=== PATIENT | male | born 1945 | race Caucasian/White ===

== ENCOUNTER 2016-06-05 17:41 | Emergency (ER) | payer MEDICARE ==
[2016-06-05] MEDS ORDERED: NS 0.9% 1000 ML* 1,000 ML IV SCH (18:00)
--- NOTE | 2016-06-05 18:25 | RAD ---
INDICATION: Palpitations. COMPARISON: There are no prior studies available for comparison. TECHNIQUE: 2 portable films of the chest were obtained. FINDINGS: Cardiac and mediastinal contours appear to be within normal limits. The lungs are underinflated and clear. No pleural effusion is seen. IMPRESSION: NO EVIDENCE FOR ACUTE DISEASE.
[2016-06-05] MEDS ORDERED: NS 0.9% 1000 ML* 1,000 ML IV ONE (18:36)
[2016-06-05 18:38] LABS: Hematocrit 44 % (42-52); Hemoglobin 14.6 g/dl (14.0-18.0); Mean Corpuscular HGB Conc 34 g/dl (31-36); Mean Corpuscular Hemoglobin 29 pg (27-31); Mean Corpuscular Volume 88 fL (80-94); Mean Platelet Volume 9 um3 (7.4-10.4); Red Blood Count 4.97 10^6/ul (4.0-5.4); Red Cell Distribution Width 14 % (10.5-15); White Blood Count 7.7 10^3/ul (3.5-10.8)
[2016-06-05 18:57] LABS: ALT 17 U/L (7-52); AST 15 U/L (13-39); Albumin 3.9 g/dL (3.2-5.2); Alkaline Phosphatase 70 U/L (34-104); Anion Gap 7 mmol/L (2-11); BUN/Creatinine Ratio 23.8 (8-20); Blood Urea Nitrogen 20 mg/dL (6-24); C Reactive Protein < 1.00 mg/L (< 5.00); CO2 Carbon Dioxide 26 mmol/L (22-32); Calcium 9.1 mg/dL (8.6-10.3); Chloride 102 mmol/L (101-111); Creatine Kinase 60 U/L (10-223); EGFR African American 116.5 (>60); EGFR Non-African American 90.6 (>60); Globulin 2.7 g/dL (2-4); Glucose 153 mg/dL (70-100); Lipase 22 U/L (11.0-82.0); Magnesium 2.2 mg/dL (1.9-2.7); Potassium 3.9 mmol/L (3.5-5.0); Sodium 135 mmol/L (133-145); Total Protein 6.6 g/dL (6.4-8.9); Troponin I 0.01 ng/mL (<0.04)
[2016-06-05 19:22] LABS: TSH (Thyroid Stimulating Horm) 0.95 mcIU/mL (0.34-5.60)
[2016-06-05] MEDS ORDERED: Iohexol 350* (CONTRAST) 500 ML MDV IV ONE (19:25)
--- NOTE | 2016-06-05 20:33 | RAD ---
INDICATION: Calf pain and positive d-dimer. COMPARISON: There are no prior studies available for comparison. TECHNIQUE: Multiple real-time, color flow and Doppler tracings of both lower extremities were obtained. FINDINGS: The common femoral, femoral, profunda femoral and popliteal veins all demonstrate normal compressibility, augmentation with compression and phasic response with respiration. The posterior tibial and peroneal veins demonstrate normal compressibility and augmentation with compression. IMPRESSION: NO EVIDENCE FOR DEEP VENOUS THROMBOSIS.
--- NOTE | 2016-06-05 20:43 | RAD ---
INDICATION: Shortness of breath, positive d-dimer. COMPARISON: Comparison is made with a prior chest x-ray study of the same date. TECHNIQUE: A CT angiogram of the chest was performed with intravenous following intravenous injection of 64 ml of Omnipaque 350 nonionic contrast. Contiguous axial sections were obtained from the lung apices through the lung bases. Images were reconstructed in the coronal and sagittal planes. FINDINGS: There is relatively homogeneous opacification of the pulmonary arteries. No intraluminal filling defect or pulmonary embolism is seen. The heart is within normal limits in size. No pericardial effusion is present. There is mild ectasia of the ascending thoracic aorta. There is moderate calcific plaque present. No significant enlarged mediastinal or hilar lymph nodes are seen. There is a moderate size hiatal hernia present. There is a 5 mm pulmonary nodule present in the right lower lobe adjacent to the major fissure best seen on image #[id number] of [id number]. There is mild dependent bilateral lower lobe subsegmental atelectasis. The lungs are otherwise clear. No pleural effusion is present. No significant focal osseous abnormality is seen. IMPRESSION: 1. NO EVIDENCE FOR PULMONARY EMBOLISM. 2. 5 MM LEFT LOWER LOBE PULMONARY NODULE. RECOMMEND A FOLLOW-UP NONCONTRAST CT OF THE CHEST IN 6 MONTHS TIME TO DEMONSTRATE STABILITY.
--- NOTE | 2016-06-05 21:26 | ED ---
Miky Hutton Alok, scribed for Timothy Yeboah MD on 06/05/16 at 1842 . Palpitations / Dysrhythmia - HPI Summary HPI Summary: 70 y/o male presents to the ED with arrhythmia for the past couple of days. The patient states that he has had this arrhythmia in the past intermittently but that for the past couple days he has experienced consistent arrhythmia in the form of palpitations when ambulating as well as SOB, weakness and short bouts of lightheadedness lasting seconds at a time. While at rest the pt states he does not feel these symptoms and denies CP, LE edema, or abd pain. Pt denies h/ o CAD or A fib and takes Atenolol, Lisinopril, Hydrochlorothiazide, and aspirin , as well as medication for HLD. PCP Dr. Love. - History of Current Complaint Chief Complaint: EDShortnessOfBreath Time Seen by Provider: 06/05/16 17:55 Hx Obtained From: Patient Onset/Duration: Gradual Onset, Lasting Days, Still Present Severity Initially: Moderate Severity Currently: Moderate Character: Irregular Aggravating: Exertion Alleviating: Rest Associated Signs & Symptoms: Lightheadedness, Shortness of Breath - Allergy/Home Medications Allergies/Adverse Reactions: Allergies Allergy/AdvReac Type Severity Reaction Status Date / Time No Known Allergies Allergy Verified 05/08/15 11:21 PMH/Surg Hx/FS Hx/Imm Hx Cardiovascular History: Reports: Hx Hypercholesterolemia, Hx Hypertension Denies: Hx Angina, Hx Pacemaker/ICD Respiratory History: Denies: Hx Asthma, Hx Chronic Obstructive Pulmonary Disease (COPD) Sensory History: Denies: Hx Hearing Aid Psychiatric History: Denies: Hx Panic Disorder - Surgical History Surgery Procedure, Year, and Place: APPENDIX; SEPTOPLASTY Infectious Disease History: Denies: History Other Infectious Disease, Traveled Outside the [place] in Last 30 Days - Family History Known Family History: Positive: Hypertension - Social History Alcohol Use: None Substance Use Type: Reports: None Smoking Status (MU): Never Smoked Tobacco Review of Systems Negative: Fever Positive: Palpitations. Negative: Chest Pain Positive: Shortness Of Breath Negative: Abdominal Pain Negative: Edema Neurological: Other - Lightheadedness All Other Systems Reviewed And Are Negative: Yes Physical Exam Triage Information Reviewed: Yes Vital Signs On Initial Exam: Initial Vitals Temp Pulse Resp BP Pulse Ox 98.7 F 75 20 153/82 98 06/05/16 17:44 06/05/16 17:44 06/05/16 17:44 06/05/16 17:44 06/05/16 17:44 Vital Signs Reviewed: Yes Appearance: Positive: Well-Appearing, No Pain Distress Skin: Positive: Warm, Skin Color Reflects Adequate Perfusion, Dry Head/Face: Positive: Normal Head/Face Inspection Eyes: Positive: EOMI, ALTON ENT: Positive: Normal ENT inspection Neck: Positive: Supple, Nontender Respiratory/Lung Sounds: Positive: Clear to Auscultation, Breath Sounds Present Cardiovascular: Positive: RRR Abdomen Description: Positive: Nontender, Soft Bowel Sounds: Positive: Present Musculoskeletal: Positive: Normal, Strength/ROM Intact Neurological: Positive: Normal, Sensory/Motor Intact, Alert, Oriented to Person Place, Time Psychiatric: Positive: Affect/Mood Appropriate - Zane Coma Scale Coma Scale Total: 15 Diagnostics - Vital Signs Vital Signs Temp Pulse Resp BP Pulse Ox 06/05/16 18:18 72 17 94 06/05/16 18:14 149/66 06/05/16 17:56 98.5 F 73 20 149/66 95 06/05/16 17:44 98.7 F 75 20 153/82 98 - Laboratory Lab Results: Lab Results 06/05/16 06/05/16 06/05/16 Range/Units 18:25 18:25 18:25 WBC 7.7 (3.5-10.8) 10^3/ul RBC 4.97 (4.0-5.4) 10^6/ul Hgb 14.6 (14.0-18.0) g/dl Hct 44 (42-52) % MCV 88 (80-94) fL MCH 29 (27-31) pg MCHC 34 (31-36) g/dl RDW 14 (10.5-15) % Plt Count 160 (150-450) 10^3/ul MPV 9 (7.4-10.4) um3 Neut % (Auto) 55.5 (38-83) % Lymph % (Auto) 34.2 (25-47) % [place] % (Auto) 8.1 (1-9) % Eos % (Auto) 1.6 (0-6) % Baso % (Auto) 0.6 (0-2) % Absolute Neuts (auto) 4.3 (1.5-7.7) 10^3/ul Absolute Lymphs (auto) 2.6 (1.0-4.8) 10^3/ul Absolute Monos (auto) 0.6 (0-0.8) 10^3/ul Absolute Eos (auto) 0.1 (0-0.6) 10^3/ul Absolute Basos (auto) 0 (0-0.2) 10^3/ul Absolute Nucleated RBC 0.01 10^3/ul Nucleated RBC % 0.1 INR (Anticoag Therapy) 0.98 (0.89-1.11) APTT 27.3 (26.0-36.3) seconds D-Dimer, Quantitative 267 H (Less Than 230) ng/mL Sodium 135 (133-145) mmol/L Potassium 3.9 (3.5-5.0) mmol/L Chloride 102 (101-111) mmol/L Carbon Dioxide 26 (22-32) mmol/L Anion Gap 7 (2-11) mmol/L BUN 20 (6-24) mg/dL Creatinine 0.84 (0.67-1.17) mg/dL Est GFR ( Amer) 116.5 (>60) Est GFR (Non-Af Amer) 90.6 (>60) BUN/Creatinine Ratio 23.8 H (8-20) Glucose 153 H (70-100) mg/dL Lactic Acid (0.5-2.0) mmol/L Calcium 9.1 (8.6-10.3) mg/dL Magnesium 2.2 (1.9-2.7) mg/dL Total Bilirubin 0.40 (0.2-1.0) mg/dL AST 15 (13-39) U/L ALT 17 (7-52) U/L Alkaline Phosphatase 70 (34-104) U/L Total Creatine Kinase 60 (10-223) U/L CK-MB (CK-2) 0.9 (0.6-6.3) ng/mL Troponin I 0.01 (<0.04) ng/mL C-Reactive Protein < 1.00 (< 5.00) mg/L B-Natriuretic Peptide ( - 100) pg/mL Total Protein 6.6 (6.4-8.9) g/dL Albumin 3.9 (3.2-5.2) g/dL Globulin 2.7 (2-4) g/dL Albumin/Globulin Ratio 1.4 (1-3) Lipase 22 (11.0-82.0) U/L TSH 0.95 (0.34-5.60) mcIU/mL 06/05/16 06/05/16 Range/Units 18:25 18:25 WBC (3.5-10.8) 10^3/ul RBC (4.0-5.4) 10^6/ul Hgb (14.0-18.0) g/dl Hct (42-52) % MCV (80-94) fL MCH (27-31) pg MCHC (31-36) g/dl RDW (10.5-15) % Plt Count (150-450) 10^3/ul MPV (7.4-10.4) um3 Neut % (Auto) (38-83) % Lymph % (Auto) (25-47) % [place] % (Auto) (1-9) % Eos % (Auto) (0-6) % Baso % (Auto) (0-2) % Absolute Neuts (auto) (1.5-7.7) 10^3/ul Absolute Lymphs (auto) (1.0-4.8) 10^3/ul Absolute Monos (auto) (0-0.8) 10^3/ul Absolute Eos (auto) (0-0.6) 10^3/ul Absolute Basos (auto) (0-0.2) 10^3/ul Absolute Nucleated RBC 10^3/ul Nucleated RBC % INR (Anticoag Therapy) (0.89-1.11) APTT (26.0-36.3) seconds D-Dimer, Quantitative (Less Than 230) ng/mL Sodium (133-145) mmol/L Potassium (3.5-5.0) mmol/L Chloride (101-111) mmol/L Carbon Dioxide (22-32) mmol/L Anion Gap (2-11) mmol/L BUN (6-24) mg/dL Creatinine (0.67-1.17) mg/dL Est GFR ( Amer) (>60) Est GFR (Non-Af Amer) (>60) BUN/Creatinine Ratio (8-20) Glucose (70-100) mg/dL Lactic Acid 1.4 (0.5-2.0) mmol/L Calcium (8.6-10.3) mg/dL Magnesium (1.9-2.7) mg/dL Total Bilirubin (0.2-1.0) mg/dL AST (13-39) U/L ALT (7-52) U/L Alkaline Phosphatase (34-104) U/L Total Creatine Kinase (10-223) U/L CK-MB (CK-2) (0.6-6.3) ng/mL Troponin I (<0.04) ng/mL C-Reactive Protein (< 5.00) mg/L B-Natriuretic Peptide 162 H ( - 100) pg/mL Total Protein (6.4-8.9) g/dL Albumin (3.2-5.2) g/dL Globulin (2-4) g/dL Albumin/Globulin Ratio (1-3) Lipase (11.0-82.0) U/L TSH (0.34-5.60) mcIU/mL Result Diagrams: 06/05/16 18:25 06/05/16 18:25 Lab Statement: Any lab studies that have been ordered have been reviewed, and results considered in the medical decision making process. - Radiology CXR Xray Interpretation: Positive (See Comments) - IMPRESSION: NO EVIDENCE FOR ACUTE DISEASE. Radiology Interpretation Completed By: Radiologist - CT Chest Thorax CTA CT Interpretation: Positive (See Comments) - IMPRESSION: 1. NO EVIDENCE FOR PULMONARY EMBOLISM. 2. 5 MM LEFT LOWER LOBE PULMONARY NODULE. RECOMMEND A FOLLOW -UP NONCONTRAST CT OF THE CHEST IN 6 MONTHS TIME TO DEMONSTRATE STABILITY. CT Interpretation Completed By: Radiologist - EKG 6502 Cardiac Rate: NL - 74 bpm EKG Rhythm: Sinus Rhythm Ectopy: PACs - Multiple EKG Interpretation: Flip T-wave in III - Additional Comments Diagnostic Additional Comments: Lower Extremity Bilateral Vein US - IMPRESSION: NO EVIDENCE FOR DEEP VENOUS THROMBOSIS. Re-Evaluation - Re-Evaluation First Eval Re-Evaluation Time: 21:12 Comment: Discussed test results and trade-offs between admittance vs being treated as an outpatient. Patient will go home with holter monitor and fu with PCP Course/Dx - Course Course Of Treatment: NO CRITICAL CARE TIME Assessment/Plan: PATIENT HAD A BRIEF EPISODE OF AN ATRIAL TACHYCARDIA, RATE 140BPM, IN THE ED. ON THE MONITOR IT DID NOT APPEAR TO BE ATRIAL FIBRILLATION. DISCUSSED RESULTS WITH PATIENT/DAUGHTER. DISCUSSED WITH DR NEWSOME. OFFERED ADMISSION VERSES OUT PATIENT F/U TO PATIENT/DAUGHTER, HE PREFERS OUT PATIENT F/ U. DISCHARGE HOME STABLE. - Diagnoses Provider Diagnoses: Palpitations - Physician Notifications Discussed Care Of Patient With: Dr. Stovall (Hospitalist) @ 2103 Discharge - Discharge Plan Condition: Stable Disposition: HOME Patient Education Materials: Palpitations (ED) Referrals: Abdoul Love MD [Primary Care Provider] - Additional Instructions: FOLLOW UP WITH YOUR DOCTOR. CALL HIM TOMORROW, 06/06/16, TO ARRANGE A CARDIAC EVENT MONITOR. RETURN TO THE EMERGENCY DEPARTMENT FOR ANY WORSENING OF YOUR CONDITION; CHEST PAIN, SHORTNESS OF BREATH, YOU FEEL LIKE PASSING OUT OR QUESTIONS OR CONCERNS. The documentation as recorded by the Miky soria Alok accurately reflects the service I personally performed and the decisions made by me, Timothy Yeboah MD.
[2016-06-05 21:40] VITALS: BP 164/75
== END 2016-06-05 21:39 | disposition home or self-care (01) ==
LOC: ED 17:41
DX: R00.2 Palpitations (principal); R91.1 Solitary pulmonary nodule; R06.02 Shortness of breath
CPT/HCPCS: 36415; 71010; 71275; 80053; 82550; 82553; 83605; 83690; 83735; 83880; 84443; 84484; 85025; 85379; 85610; 85730; 86140; 93005; 93970; 99282; Q9967

== ENCOUNTER 2016-10-27 10:39 | Emergency (ER) | payer MEDICARE ==
[2016-10-27 12:08] LABS: Hematocrit 44 % (42-52); Mean Corpuscular HGB Conc 34 g/dl (31-36); Mean Corpuscular Hemoglobin 30 pg (27-31); Mean Corpuscular Volume 87 fL (80-94); Mean Platelet Volume 9 um3 (7.4-10.4); Red Blood Count 5.04 10^6/ul (4.0-5.4); Red Cell Distribution Width 14 % (10.5-15); White Blood Count 7.7 10^3/ul (3.5-10.8)
[2016-10-27 12:21] LABS: Albumin 3.9 g/dL (3.2-5.2); BUN/Creatinine Ratio 20.5 (8-20); Calcium 9.2 mg/dL (8.6-10.3); EGFR African American 110.1 (>60); EGFR Non-African American 85.6 (>60); Globulin 2.6 g/dL (2-4); Total Bilirubin 0.7 mg/dL (0.2-1.0); Total Protein 6.5 g/dL (6.4-8.9); Troponin I 0.01 ng/mL (<0.04)
--- NOTE | 2016-10-27 12:27 | RAD ---
Indication: Memory lapses. CT of the brain was performed without IV contrast. Intratesticular structures are midline. No midline shift is noted. There is no evidence of cranial mass or hemorrhage. No other high or low density lesions are identified. Mucous retention cyst is noted in the left maxillary sinus. Ethmoid air cells and mastoid sinuses and frontal sinuses are unremarkable. IMPRESSION: No intracranial mass or hemorrhage is noted. Mucous retention cyst in the left maxillary sinus.
[2016-10-27 12:38] LABS: TSH (Thyroid Stimulating Horm) 0.75 mcIU/mL (0.34-5.60)
[2016-10-27 14:20] VITALS: BP 154/72
--- NOTE | 2016-10-27 16:57 | ED ---
Zoie Hutton Edward, scribed for Mikel Francis MD on 10/27/16 at 1108 . Hypertension - HPI Summary HPI Summary: 71 y/o male presents to the ED c/o sudden onset HTN (150/80) starting when the pt woke up in the morning 4 days ago. The symptoms are not aggravated or alleviated by anything. Associated sx: fatigue, gradual onset memory loss for the past couple of days, mild blurred vision. Denies HURLEY. Past medications reviewed on visit. - History of Current Complaint Chief Complaint: EDHypertension Stated Complaint: HIGH BLOOD PRESSURE Time Seen by Provider: 10/27/16 11:05 Hx Obtained From: Patient Onset/Duration: Started Days Ago Associated Signs & Symptoms: Other: - Memory loss, blurred vision, fatigue. Denies HURLEY - Allergies/Home Medications Allergies/Adverse Reactions: Allergies Allergy/AdvReac Type Severity Reaction Status Date / Time No Known Allergies Allergy Verified 07/18/16 15:11 PMH/Surg Hx/FS Hx/Imm Hx Previously Healthy: No Endocrine/Hematology History: Denies: Hx Diabetes Cardiovascular History: Reports: Hx Hypercholesterolemia, Hx Hypertension Denies: Hx Angina, Hx Pacemaker/ICD Respiratory History: Denies: Hx Asthma, Hx Chronic Obstructive Pulmonary Disease (COPD) History: Denies: Hx Renal Disease Sensory History: Denies: Hx Hearing Aid Psychiatric History: Denies: Hx Panic Disorder - Surgical History Surgery Procedure, Year, and Place: APPENDIX; SEPTOPLASTY Infectious Disease History: No Infectious Disease History: Denies: History Other Infectious Disease, Traveled Outside the [place] in Last 30 Days - Family History Known Family History: Positive: Hypertension - Social History Alcohol Use: None Hx Substance Use: No Substance Use Type: Reports: None Hx Tobacco Use: No Smoking Status (MU): Never Smoked Tobacco Review of Systems Positive: Fatigue Positive: Blurred Vision ENT: Negative Cardiovascular: Other - HTN Respiratory: Negative Gastrointestinal: Negative Genitourinary: Negative Musculoskeletal: Negative Skin: Negative Neurological: Other - Memory loss Psychological: Normal All Other Systems Reviewed And Are Negative: Yes Physical Exam Triage Information Reviewed: Yes Vital Signs On Initial Exam: Initial Vitals Temp Pulse Resp BP Pulse Ox 97.7 F 72 16 142/66 96 10/27/16 10:41 10/27/16 10:41 10/27/16 10:41 10/27/16 10:41 10/27/16 10:41 Vital Signs Reviewed: Yes Appearance: Positive: Well-Appearing, No Pain Distress Skin: Positive: Warm, Skin Color Reflects Adequate Perfusion, Dry Head/Face: Positive: Normal Head/Face Inspection Eyes: Positive: Normal ENT: Positive: Normal ENT inspection Neck: Positive: Supple, Nontender Respiratory/Lung Sounds: Positive: Clear to Auscultation, Breath Sounds Present Cardiovascular: Positive: RRR Abdomen Description: Positive: Nontender, Soft Bowel Sounds: Positive: Present Musculoskeletal: Positive: Normal Neurological: Positive: Sensory/Motor Intact, Alert, Oriented to Person Place, Time, CN Intact II-III, Reflexes Intact Psychiatric: Positive: Normal, Affect/Mood Appropriate Diagnostics - Vital Signs Vital Signs Temp Pulse Resp BP Pulse Ox 10/27/16 10:41 97.7 F 72 16 142/66 96 - Laboratory Lab Results: Lab Results 10/27/16 10/27/16 10/27/16 Range/Units 11:40 11:40 11:40 WBC 7.7 (3.5-10.8) 10^3/ul RBC 5.04 (4.0-5.4) 10^6/ul Hgb 15.0 (14.0-18.0) g/dl Hct 44 (42-52) % MCV 87 (80-94) fL MCH 30 (27-31) pg MCHC 34 (31-36) g/dl RDW 14 (10.5-15) % Plt Count 175 (150-450) 10^3/ul MPV 9 (7.4-10.4) um3 Neut % (Auto) 68.0 (38-83) % Lymph % (Auto) 24.4 L (25-47) % [place] % (Auto) 7.1 (1-9) % Eos % (Auto) 0.1 (0-6) % Baso % (Auto) 0.4 (0-2) % Absolute Neuts (auto) 5.3 (1.5-7.7) 10^3/ul Absolute Lymphs (auto) 1.9 (1.0-4.8) 10^3/ul Absolute Monos (auto) 0.5 (0-0.8) 10^3/ul Absolute Eos (auto) 0 (0-0.6) 10^3/ul Absolute Basos (auto) 0 (0-0.2) 10^3/ul Absolute Nucleated RBC 0.01 10^3/ul Nucleated RBC % 0.1 Sodium 138 (133-145) mmol/L Potassium 4.0 (3.5-5.0) mmol/L Chloride 103 (101-111) mmol/L Carbon Dioxide 29 (22-32) mmol/L Anion Gap 6 (2-11) mmol/L BUN 18 (6-24) mg/dL Creatinine 0.88 (0.67-1.17) mg/dL Est GFR ( Amer) 110.1 (>60) Est GFR (Non-Af Amer) 85.6 (>60) BUN/Creatinine Ratio 20.5 H (8-20) Glucose 179 H (70-100) mg/dL Lactic Acid 1.4 (0.5-2.0) mmol/L Calcium 9.2 (8.6-10.3) mg/dL Total Bilirubin 0.70 (0.2-1.0) mg/dL AST 17 (13-39) U/L ALT 21 (7-52) U/L Alkaline Phosphatase 74 (34-104) U/L Troponin I 0.01 (<0.04) ng/mL Total Protein 6.5 (6.4-8.9) g/dL Albumin 3.9 (3.2-5.2) g/dL Globulin 2.6 (2-4) g/dL Albumin/Globulin Ratio 1.5 (1-3) TSH 0.75 (0.34-5.60) mcIU/mL Result Diagrams: 10/27/16 11:40 10/27/16 11:40 Lab Statement: Any lab studies that have been ordered have been reviewed, and results considered in the medical decision making process. - CT BRAIN CT CT Interpretation Completed By: Radiologist - No intracranial mass or hemorrhage is noted. Mucous retention cyst in the left maxillary sinus. ED PHYSICIAN AGREEABLE - EKG 1 EKG Rhythm: Sinus Rhythm - @ 64 BPM EKG Interpretation: 12:02 Re-Evaluation - Re-Evaluation 1 Re-Evaluation Time: 13:55 Hypertension Course/Dx - Course Course Of Treatment: Mr. Monge has been having some meomory problems for several months but he woke up on Wed. AM much worse and his BP's have been running high since. His W/U here was unremarkable and he is being referred to Dr. Caban. - Diagnoses Provider Diagnoses: Memory loss - Physician Notifications Discussed Care Of Patient With: Elisabet Caban Time Discussed With Above Provider: 13:50 Discharge - Discharge Plan Condition: Stable Disposition: HOME Patient Education Materials: Hypertension (ED) Referrals: Elisabet Caban MD [Medical Doctor] - 1 Week (Please f/u in 1 week) The documentation as recorded by the Zoie soria Edward accurately reflects the service I personally performed and the decisions made by , Mikel Francis MD.
== END 2016-10-27 14:19 | disposition home or self-care (01) ==
LOC: ED 10:39
DX: R41.3 Other amnesia (principal); I10 Essential (primary) hypertension; E78.00 Pure hypercholesterolemia, unspecified
CPT/HCPCS: 36415; 70450; 80053; 83605; 84443; 84484; 85025; 93005; 99283

== ENCOUNTER 2018-09-28 18:26 | Emergency (ER) | payer MEDICARE ==
--- NOTE | 2018-09-28 18:47 | ED ---
HPI Cardiac - HPI Summary HPI Summary: Patient is a 73 y/o M presenting to ED with complaints of fast palpitations, dizziness, SOB, nausea, and near syncopal episode today, 09/28/18. Patient's daughter, Destiny, is in room and serves as box attacher for patient, as his first language is [place]. He is noted to be in SVT on the monitor. However, while in the room, patient spontaneously converted to NSR. At this time of conversion, 1841, pulse 88, NSR, o2 96, BP 168/89. He denies Hx of SVT but notes that he had Hx of heart palpitations from a couple of years ago. Chest pain, edema are denied. Patient denies Hx of NJ or cardiac catheterization. PMHx of HLD, HTN is endorsed. He denies Hx of asthma, diabetes, and thyroid disease. PSHx of appendectomy. NKDA is reported. FMHx of cardiac disease, mother 54 years old. Patient's PCP is Dr. Love, senior accounts payable clerk is Dr. Aguilar. He is on atorvastatin 40 mg, hydrochlorothiazide, 12.5 mg, lisinopril 10 mg, atenolol 25 mg, and colace. He took 81 mg ASA this morning. Patient has not taken his night medications yet. Home medications and allergies are reviewed. Allergies Allergy/AdvReac Type Severity Reaction Status Date / Time No Known Allergies Allergy Verified 09/28/18 18:32 - History of Current Complaint Chief Complaint: EDDysrhythmPalp Stated Complaint: HIGH BLOOD PRESSURE/RAPID HEART RATE PER DAUGHTER Time Seen by Provider: 09/28/18 18:39 Hx Obtained From: Patient, Family/[employer] [place] - patient's first language is [place], daughter, Destiny, translated. Pt did not wish additional translation services. Onset/Duration: Resolved - no longer in SVT in room Timing: Intermittent Initial Severity: Mild Current Severity: None Pain Intensity: 0 Pain Scale Used: 0-10 Numeric Character: Fast Aggravating Factor(s): Nothing Alleviating Factor(s): Nothing Associated Signs and Symptoms: Positive: Dizziness, Shortness of Breath, Nausea , Palpitations, Other: - near syncope. Negative: Chest Pain, Swelling - Allergy/Home Medications Allergies/Adverse Reactions: Allergies Allergy/AdvReac Type Severity Reaction Status Date / Time No Known Allergies Allergy Verified 09/28/18 18:32 PMH/Surg Hx/FS Hx/Imm Hx Previously Healthy: No Endocrine/Hematology History: Denies: Hx Diabetes, Hx Thyroid Disease Cardiovascular History: Reports: Hx Hypercholesterolemia, Hx Hypertension, Other Cardiovascular Problems/Disorders - palpitations Denies: Hx Angina, Hx Myocardial Infarction, Hx Pacemaker/ICD Respiratory History: Denies: Hx Asthma, Hx Chronic Obstructive Pulmonary Disease (COPD) History: Denies: Hx Renal Disease Sensory History: Denies: Hx Hearing Aid Psychiatric History: Denies: Hx Panic Disorder - Surgical History Surgical History: Yes Surgery Procedure, Year, and Place: APPENDIX; SEPTOPLASTY Infectious Disease History: No Infectious Disease History: Denies: History Other Infectious Disease, Traveled Outside the [place] in Last 30 Days - Family History Known Family History: Positive: Cardiac Disease, Hypertension - Social History Alcohol Use: None Hx Substance Use: No Substance Use Type: Reports: None Hx Tobacco Use: No Smoking Status (MU): Never Smoked Tobacco Review of Systems Constitutional: Negative Positive: Palpitations. Negative: Chest Pain Positive: Shortness Of Breath Positive: Nausea Positive: no symptoms reported Negative: Edema Skin: Negative Neurological: Other - positive - dizziness, near syncopal Psychological: Normal All Other Systems Reviewed And Are Negative: Yes Physical Exam - Summary Physical Exam Summary: Appearance: Well-appearing, no pain distress, well-nourished, was in rapid SVT on admission to ED and as Dr. Bauman came into pt's room, but pt spontaneously converted during evaluation. Skin: Warm, color reflects adequate perfusion, dry Head: Normal Head/Face inspection, atraumatic Eyes: Conjunctiva clear, EOMI ENT: Normal inspection Neck: Supple, no nodes, no JVD Respiratory: Lungs clear, normal breath sounds, no respiratory distress Cardio: RRR, No murmur, pulses normal, brisk capillary refill Abdomen: Soft, nontender Bowel sounds: Present Musculoskeletal: Strength Intact/ROM intact, no calf tenderness, no edema. Psychological: Normal Neuro: Alert, muscle tone normal, no focal deficit Triage Information Reviewed: Yes Vital Signs On Initial Exam: Initial Vitals Temp Pulse Resp BP Pulse Ox 99 F 155 16 172/106 96 09/28/18 18:27 09/28/18 18:27 09/28/18 18:27 09/28/18 18:27 09/28/18 18:27 Vital Signs Reviewed: Yes Diagnostics - Vital Signs Vital Signs Temp Pulse Resp BP Pulse Ox 09/28/18 18:27 99 F 155 16 172/106 96 - Laboratory Result Diagrams: 09/28/18 19:01 09/28/18 19:01 Lab Statement: Any lab studies that have been ordered have been reviewed, and results considered in the medical decision making process. - Radiology CXR Radiology Interpretation Completed By: ED Physician Summary of Radiographic Findings: No acute process, pending official report. - EKG 183 Cardiac Rate: Other Rate - SVT with rate of 154 BPM EKG Rhythm: SVT ST Segment: Non-Specific EKG Comparison: Other - Compared with 10/27/16, patient is now in SVT. Summary of EKG Findings: EKG at 1836 showed SVT with rate of 154 BPM, nml IVCT, nml QTc, no STEMI. Compared with 10/27/16, patient is now in SVT. 184 Cardiac Rate: NL - rate of 85 BPM EKG Rhythm: Sinus Rhythm EKG Comparison: No Significant Change - No significant change compared to EKG. Summary of EKG Findings: EKG showed NSR with rate of 85 BPM, nml intervals, Q waves in V1-V3, lead III and aVF. No significant change compared to 10/27/16 EKG. C/W earlier EKG today, pt is now in SR. Re-Evaluation - Re-Evaluation First Eval Re-Evaluation Time: 21:26 Change: Unchanged Comment: Patient's HR is 90, he is to be given his regular night medications of atorvistatin 40 mg, hydrochlorothiazide, 12.5 mg, and colace. He was also given 50 mg of atenolol. He denies CP. Disposition - Course Course Of Treatment: Patient is a 73 y/o M presenting to ED with complaints of fast palpitations, dizziness, SOB, nausea, and near syncopal episode today, 09/28. He is noted to be in SVT on the monitor. However, while in the room, patient spontaneously converted to NSR. At this time of conversion, 1840, pulse 88, NSR, o2 96, BP 168/89. He denies Hx of SVT but notes that he had Hx of heart palpitations from a couple of years ago. Chest pain, edema are denied. Patient denies Hx of NJ or cardiac catheterization. PMHx of HLD, HTN is endorsed. He denies Hx of asthma, diabetes, and thyroid disease. FMHx of cardiac disease, mother 54 years old. He is on atorvastatin 40 mg, hydrochlorothiazide, 12.5 mg, lisinopril 10 mg, atenolol 25 mg. He took 81 mg ASA this morning. Patient has not taken his night medications yet. Physical exam is unremarkable. EKG at 1836 showed SVT with rate of 154 BPM, nml IVCT, nml QTc, no STEMI. Compared with 10/27/16, patient is now in SVT. EKG showed NSR with rate of 85 BPM, nml intervals, Q waves in V1-V3, lead III and aVF. No significant change compared to 10/27/16 EKG. CXR is NAD. Labs showed BUN/ creatinine ratio 23.4, glucose 122. CK-MB was 1.3, trop 0.01, and TSH 0.92. During ED course, patient received fluids, hydrochlorothiazide 12.5 mg, Colace 100 mg PO, Lipitor 20 mg PO, and atenolol 50 mg PO. Pt remained chest pain free , and continued in SR. Patient was discharged to home and will follow up with PCP. Strict return precautions given. Patient is agreeable with this plan. - Differential Dx - Cardiopulmonary Differential Diagnoses - Cardiopulmonary: Aortic Stenosis, CHF, Myocardial Infarction, Paroxysmal SVT, Pulmonary Embolism - Diagnoses Provider Diagnoses: SVT (supraventricular tachycardia), Near syncope, Hypertension, poor control Discharge ED - Sign-Out/Discharge Documenting (check all that apply): Patient Departure - discharge Patient Received Moderate/Deep Sedation with Procedure: No - Discharge Plan Condition: Stable Disposition: HOME Patient Education Materials: Supraventricular Tachycardia (ED) Referrals: Abdoul Love MD [Primary Care Provider] - 2 Days Additional Instructions: You presented in the ER with the heart rhythm SVT. We have given you instructions about this. Your heart converted on its own within less than 5 minutes back to normal sinus rhythm. We did not detect any abnormalities in your labs that would have caused this. There was no evidence of heart damage based on the troponin level. Your chest xray is only a preliminary reading by Dr. Bauman, but it did not show any significant abnormality. We will contact you if there is any abnormality on the CXR that was not detected by Dr. Bauman. If you have an additional episode of your heart racing like this, you will need to call 911 and return to the ER for evaluation. Continue your current medications. We gave your usual night time medications of Atorvastatin, Hydrochlorthiazide and the laxative medication. We also gave you atenolol (Tenormin) 50mg (1/2 pill more than your usual dose) which will help keep your heart rate lower. You should return to the ER if you have any new or worsening symptoms. And you should follow up with Dr. Love in the next few days to advise him of the SVT and see if he would like any additional testing. - Billing Disposition and Condition Condition: STABLE Disposition: Home - Attestation Statements Document Initiated by Karlos: Yes Documenting Scribe: CARLYN MORTON Provider For Whom Karlos is Documenting (Include Credential): WYATT BAUMAN MD Scribe Attestation: CARLYN Hutton, scribed for WYATT BAUMAN MD on 10/18/18 at 0641. Scribe Documentation Reviewed: Yes Provider Attestation: The documentation as recorded by the CARLYN soria accurately reflects the service I personally performed and the decisions made by , WYATT BAUMAN MD Status of Scribeddie Document: Viewed
[2018-09-28] MEDS ORDERED: NS 0.9% 1000 ML** 1,000 ML IV ONE (18:52)
[2018-09-28] MEDS ORDERED: Hydrochlorothiazide TAB* 25 MG PO ONE ×2 (18:54→20:00)
[2018-09-28] MEDS ORDERED: Simvastatin TAB(NF) 20 MG TAB PO ONE (18:56)
[2018-09-28] MEDS ORDERED: Docusate CAP* 100 MG PO ONE (18:57)
[2018-09-28 19:10] LABS: ABS Basophils 0.1 10^3/ul (0-0.2); ABS Lymphocytes 2.7 10^3/ul (1.0-4.8); ABS Monocytes 0.8 10^3/ul (0-0.8); ABS Neutrophils 5.3 10^3/ul (1.5-7.7); Eosinophil % 0.4 %; Hematocrit 45 % (42-52); Hemoglobin 15.6 g/dL (14.0-18.0); Lymphocyte % 29.9 %; Mean Corpuscular HGB Conc 34 g/dL (31-36); Mean Corpuscular Hemoglobin 31 pg (27-31); Mean Corpuscular Volume 89 fL (80-94); Mean Platelet Volume 7.9 fL (7.4-10.4); Platelet Count 177 10^3/uL (150-450); Red Cell Distribution Width 14 % (10-15); White Blood Count 8.9 10^3/uL (3.5-10.8)
[2018-09-28 19:20] LABS: Activated Partial Thrombo Time 28.7 seconds (26.0-38.0); INR 1.08 (0.82-1.09)
[2018-09-28 19:28] LABS: Albumin/Globulin Ratio 1.6 (1-3); BUN/Creatinine Ratio 23.4 (8-20); Calcium 9.1 mg/dL (8.6-10.3); EGFR African American 120.2 (>60); EGFR Non-African American 99.3 (>60); Globulin 2.5 g/dL (2-4); Magnesium 2.1 mg/dL (1.9-2.7); Potassium 3.7 mmol/L (3.5-5.0); Total Bilirubin 0.7 mg/dL (0.2-1.0); Total Protein 6.5 g/dL (6.4-8.9)
[2018-09-28 19:29] LABS: Troponin I 0.01 ng/mL (<0.04)
[2018-09-28 19:32] LABS: CKMB ng/mL 1.3 ng/mL (0.6-6.3)
[2018-09-28 19:46] LABS: TSH (Thyroid Stimulating Horm) 0.92 mcIU/mL (0.34-5.60)
[2018-09-28] MEDS ORDERED: Atorvastatin* 20 MG TAB PO ONE (20:00)
[2018-09-28 21:13] LABS: Urine Appearance Clear; Urine Bacteria Absent (Absent); Urine Bilirubin Negative (Negative); Urine Blood 1+ (Negative); Urine Color Straw; Urine Glucose Negative (Negative); Urine Ketones Trace (Negative); Urine Nitrite Negative (Negative); Urine Protein Negative (Negative); Urine Red Blood Cell Trace(0-2/hpf) (Absent); Urine Specific Gravity 1.005 (1.010-1.030); Urine Urobilinogen Negative (Negative); Urine White Blood Cell Absent (Absent)
[2018-09-28] MEDS ORDERED: Atenolol TAB* 50 MG PO ONE (21:26)
[2018-09-28 21:54] VITALS: BP 160/92
== END 2018-09-28 22:01 | disposition home or self-care (01) ==
LOC: ED 18:26
DX: I47.1 Supraventricular tachycardia (principal); E78.00 Pure hypercholesterolemia, unspecified; I10 Essential (primary) hypertension; Z79.82 Long term (current) use of aspirin; Z79.899 Other long term (current) drug therapy
CPT/HCPCS: 36415; 71045; 80053; 81003; 81015; 82550; 82553; 83735; 83880; 84443; 84484; 85025; 85610; 85730; 93005; 96360; 99283; A9270-GY